=== PATIENT | male | born 1995 | race African-American/Black ===

== ENCOUNTER 2021-08-23 18:12 | Emergency (ER) | payer OTHER ==
[~2021-08-23] VITALS: Ht 175.3 cm; Wt 77.8 kg
[2021-08-23 18:13] VITALS: BP 156/72
[2021-08-23] MEDS ORDERED: KETOROLAC 30 MG/ML 1ML VIAL IV ONE (19:30)
[2021-08-23] MEDS ORDERED: ceFAZolin SOD 2 GM in IV 1 EA IV ONE (19:30)
[2021-08-23] MEDS ORDERED: LIDOCAINE 2% MDV 20ML VIAL SC ONE (20:15)
[2021-08-23] MEDS ORDERED: BACITRACIN OINTMENT 30GM TUBE TOP ONE (21:00)
[2021-08-23] MEDS ORDERED: CEPH500C PO (21:04)
== END 2021-08-23 21:21 | disposition home or self-care (01) ==
LOC: M ED 18:12
DX: S62.665B Nondisplaced fracture of distal phalanx of left ring finger, initial encounter for open fracture (principal); W23.0XXA Caught, crushed, jammed, or pinched between moving objects, initial encounter; Y92.138 Other place on military base as the place of occurrence of the external cause; Y99.1 Military activity
CPT/HCPCS: 12001; 73130; 96365; 96375; 99283; J0690; J1885

== ENCOUNTER 2021-08-24 16:29 | Day surgery (SDC) | payer OTHER ==
[~2021-08-24] VITALS: Ht 175.3 cm; Wt 72.6 kg
[~2021-08-24 16:29] MED LIST: CEPH500C PO
[2021-08-24] MEDS ORDERED: ceFAZolin 2 GM/D5W 50 ML IV BAG (J0690 PER 500MG) As Ordered ONE (18:16)
[2021-08-24] MEDS ORDERED: LIDOCAINE 1% SDV 30ML VIAL As Ordered ONE (18:18)
[2021-08-24] MEDS ORDERED: BUPIVACAINE HCL 0.25% 30ML VIAL As Ordered ONE (18:19)
[2021-08-24] MEDS ORDERED: dexameTHASONE 4 MG/ML 1ML VIAL (J1100 PER 1MG) As Ordered ONE (18:25)
[2021-08-24] MEDS ORDERED: LIDOCAINE 2% 100MG/5ML SDV (FOR ANES.) As Ordered ONE (18:25)
[2021-08-24] MEDS ORDERED: MIDAZOLAM INJ 2MG/2ML VIAL (J2250 PER 1MG) As Ordered ONE (18:25)
[2021-08-24] MEDS ORDERED: propofoL 200 MG/20 ML VIAL As Ordered ONE (18:25)
[2021-08-24] MEDS ORDERED: ACETAMINOPHEN 1000MG 100ML IV BTL (OFIRMEV) (J0131 PER 10MG) As Ordered ONE (18:25)
[2021-08-24] MEDS ORDERED: ONDANSETRON 4MG/2ML VIAL As Ordered ONE (18:25)
[2021-08-24] MEDS ORDERED: fentaNYL 100 MCG/2 ML INJECTION As Ordered ONE (18:25)
[2021-08-24] MEDS ORDERED: METOCLOPRAMIDE INJ 10MG/2ML VIAL (J2765 PER 1) As Ordered ONE (18:35)
[2021-08-24] MEDS ORDERED: KETOROLAC 60MG 2ML VIAL As Ordered ONE (18:41)
[2021-08-24] MEDS ORDERED: ePHEDrine SULFATE 25 MG/5 ML(5MG/ML) SYRINGE As Ordered ONE (18:54)
[2021-08-24 19:40] VITALS: BP 134/62
== END 2021-08-24 20:07 | disposition home or self-care (01) ==
LOC: M SDC 16:29
PROVIDERS: ATTEND Orthopaedic Surgery
DX: S62.665B Nondisplaced fracture of distal phalanx of left ring finger, initial encounter for open fracture (principal); W23.0XXA Caught, crushed, jammed, or pinched between moving objects, initial encounter; Y92.139 Unspecified place military base as the place of occurrence of the external cause; Y93.89 Activity, other specified; Y99.1 Military activity
CPT/HCPCS: 11010; 11730; 11760; J0131; J0690; J1100; J1885; J2250; J2405; J2765; J3010